=== PATIENT | female | born 1955 | race Caucasian/White ===

== ENCOUNTER 2023-08-10 12:47 | Emergency (ER) | payer OTHER ==
[~2023-08-10] VITALS: Ht 172.7 cm; Wt 93.0 kg
[2023-08-10 13:05] VITALS: BP 162/98
== END 2023-08-10 15:40 | disposition home or self-care (01) ==
LOC: ER 12:47
DX: S83.91XA Sprain of unspecified site of right knee, initial encounter (principal); W19.XXXA Unspecified fall, initial encounter; Z88.2 Allergy status to sulfonamides; Z88.5 Allergy status to narcotic agent
CPT/HCPCS: 73562-RT; 99283-25

== ENCOUNTER → 2024-01-21 | Outpatient (CLI) | payer MEDICARE, OTHER ==
[~2024-01-21] MED LIST: ACET325; ALBU90OI; ASCORBIC ACID500 MG; FISH OIL 1,0001 EA10; GABA300; LEVSOD88; MELA3; MULVITA; OMEP20ER; UBIQUINOL; VITAMIN B2100 MG; VITAMIN D310 MC4
[2024-01-21 14:26] LABS: Source, Urine Clean Catch
[2024-01-21 16:04] LABS: Appearance, Urine Hazy (Clear); Bilirubin, Urine Neg (Neg); Blood, Urine Neg (Neg); Color, Urine Yellow (P-Yellow); Glucose Qualitative, Urine Neg (Neg); Ketones, Urine Neg (Neg); Leukocyte Esterase, Urine Neg (Neg); Nitrite, Urine Pos (Neg); Protein, Urine 1+ (Neg); Urobilinogen, Urine NORM (Normal)
[2024-01-21 16:29] LABS: Bacteria Many /hpf; Red Blood Cells, Urine 0-2 /hpf (0-2); Squamous Epithelial Cells Few /hpf (Few)
== END ==
LOC: LAB 14:25 → LAB SHORT 14:25
PROVIDERS: Internal Medicine Nephrology
DX: R82.90 Unspecified abnormal findings in urine (principal)
CPT/HCPCS: 81001; 87077; 87086; 87186

== ENCOUNTER 2024-02-02 12:05 | Inpatient (IN) | payer MEDICARE, OTHER ==
[~2024-02-02] VITALS: Ht 172.7 cm; Wt 98.8 kg
[~2024-02-02 12:05] MED LIST changes: -GABA300; +GABA300 PO
[2024-02-02 12:58] LABS: Source, Urine Clean Catch
[2024-02-02 12:58] LABS: Influenza A, PCR NEGATIVE (NEGATIVE); Influenza B, PCR NEGATIVE (NEGATIVE); Resp Syncytial Virus, PCR NEGATIVE (NEGATIVE); SARS-Cov-2 (COVID-19) PCR, MMC NEGATIVE (NEGATIVE)
[2024-02-02 13:01] LABS: Appearance, Urine Hazy (Clear); Bilirubin, Urine Neg (Neg); Blood, Urine 1+ (Neg); Color, Urine Yellow (P-Yellow); Glucose Qualitative, Urine Neg (Neg); Ketones, Urine Neg (Neg); Leukocyte Esterase, Urine 2+ (Neg); Nitrite, Urine Neg (Neg); Protein, Urine 3+ (Neg); Specific Gravity, Urine 1.015 (1.003-1.022); Urobilinogen, Urine NORM (Normal)
[2024-02-02 13:03] LABS: BASOPHILS ABSOLUTE AUTO 0.02 K/mm3 (0.00-0.23); BASOPHILS PERCENT AUTO 0 % (0-2); EOSINOPHILS ABSOLUTE AUTO 0.03 K/mm3 (0.00-0.68); EOSINOPHILS PERCENT AUTO 0 % (0-6); Hematocrit 31.2 % (33.0-51.0); Hemoglobin 10.5 g/dL (11.5-16.0); IMMATURE GRAN ABSOLUTE AUTO 0.03 K/mm3 (0.00-0.10); IMMATURE GRAN PERCENT AUTO 0 % (0-1); LYMPHOCYTES ABSOLUTE AUTO 1.18 K/mm3 (0.84-5.20); LYMPHOCYTES PERCENT AUTO 14 % (21-46); MONOCYTES ABSOLUTE AUTO 0.82 K/mm3 (0.16-1.47); MONOCYTES PERCENT AUTO 10 % (4-13); Mean Corpuscular HGB 31.3 pg (26.0-34.0); Mean Corpuscular HGB Conc 33.7 g/dL (31.5-36.5); Mean Corpuscular Volume 93 fL (80-100); Mean Platelet Volume 9.6 fL (9.1-12.4); NEUTROPHILS PERCENT AUTO 75 % (41-73); Platelet Count 161 K/mm3 (150-400); RDW Coefficient Variation 13.4 % (11.7-14.2); RDW Standard Deviation 45.6 fL (35.1-46.3); Red Blood Cell Count 3.36 M/mm3 (3.80-5.20); White Blood Cell Count 8.28 K/mm3 (4.00-11.30)
[2024-02-02 13:20] LABS: Albumin/Globulin Ratio 0.5 (0.8-1.8); Bilirubin, Total 0.6 mg/dL (0.1-1.0); Bun/Creatinine Ratio 13.5 (12.0-20.0); Creatinine, Blood 1.7 mg/dL (0.40-1.00); Globulin, Blood 5.5 g/dL (2.2-4.0); Total Protein, Blood 8.5 g/dL (6.4-8.2)
[2024-02-02 13:20] LABS: Bacteria Many /hpf; Mucus Mod (0-Heavy); Red Blood Cells, Urine 0-2 /hpf (0-2); Squamous Epithelial Cells Few /hpf (Few); Transitional Epithelial Cells Rare /hpf (0-Rare); White Blood Cells, Urine TNTC /hpf (0-5)
[2024-02-02 13:21] LABS: Amorphous Mod (0-Heavy); Granular Casts 0-2 /lpf (0)
[2024-02-02] MEDS ORDERED: CefTRIAXone Sodium 1,000 MG in NS 100 ML IV ONE (14:40)
[2024-02-02] MEDS ORDERED: NS 1,000 ML IV SCH (16:25)
[2024-02-02] MEDS ORDERED: Albuterol 2.5 MG/3 ML VIAL INH PRN (17:25)
[2024-02-02] MEDS ORDERED: FLU VACC TS2024-25(6MOS UP)/PF 45 MCG/0.5 ML SYRINGE IM SCH (17:25)
[2024-02-02] MEDS ORDERED: Lactated Ringer's 1,000 ML IV SCH (17:25)
[2024-02-02] MEDS ORDERED: Ondansetron HCl 2 MG / ML 2ML Vial IV PRN (17:30)
[2024-02-02] MEDS ORDERED: Piperacillin/Tazobactam Sod 3.375 GM in NS 100 ML IV SCH (18:00)
[2024-02-02] MEDS ORDERED: Morphine Sulfate 4 MG/1 ML Injection IV PRN (18:55)
[2024-02-02] MEDS ORDERED: GABA300 PO (19:19)
[2024-02-02] MEDS ORDERED: LEVSOD75 PO (19:20)
[2024-02-02] MEDS ORDERED: ATOR20 PO (19:21)
[2024-02-02] MEDS ORDERED: Sodium Bicarb 8.4% Inj 150 MEQ in Dextrose 5% 1,000 ML IV SCH (19:25)
[2024-02-02 19:48] VITALS: BP 130/112
[2024-02-02] MEDS ORDERED: HYDROmorphone HCl/Pf 1MG SYR IV PRN (20:35)
[2024-02-02] MEDS ORDERED: Metoclopramide HCl 5MG / ML 2ML Vial IV PRN (20:35)
[2024-02-02] MEDS ORDERED: Lactobacil 2-S.Thermo-Bifido 1 1 Cap PO SCH (21:00)
[2024-02-03 02:06] VITALS: BP 107/51
[2024-02-03 04:35] LABS: Hematocrit 26.5 % (33.0-51.0); Hemoglobin 8.6 g/dL (11.5-16.0); Mean Corpuscular HGB 30.4 pg (26.0-34.0); Mean Corpuscular HGB Conc 32.5 g/dL (31.5-36.5); Mean Corpuscular Volume 94 fL (80-100); Mean Platelet Volume 9.8 fL (9.1-12.4); Platelet Count 139 K/mm3 (150-400); RDW Coefficient Variation 13.6 % (11.7-14.2); RDW Standard Deviation 46.5 fL (35.1-46.3); Red Blood Cell Count 2.83 M/mm3 (3.80-5.20); White Blood Cell Count 4.87 K/mm3 (4.00-11.30)
[2024-02-03 04:47] LABS: Bun/Creatinine Ratio 14.5 (12.0-20.0); Calcium, Blood 8.7 mg/dL (8.5-10.1); Creatinine, Blood 1.52 mg/dL (0.40-1.00); Potassium, Blood 3.8 mmol/L (3.5-5.5)
--- NOTE | 2024-02-03 05:58 | NUR ---
T/F AND SUMMARY: REPORT RECEIVED FROM OVI (DISINTEGRATOR FEEDER) AND PT T/F TO ROOM 302 AT 1945. SHE'S A/OX4, WAS ORIENTED TO ROOM AND CALL SYSTEM AND IS ABLE TO MAKED NEEDS KNOWN. PT IS PLEASANT AND COOPERATIVE W/CARE AND SBA OOB. SHE REPORTS CANE USE AT BASELINE D/T "CHRONIC FATIGUE" W/OCC.BALANCE ISSUES SECONDARY TO "HYDROCEPHALUS AND BRAIN SHUNT". R.UROSTOMY IS PATENT AND DRAINING DARK KRUPA URINE. NA BICARB GTT COMMENCED AND IV ABX RECEIVED FOR TX OF UTI W/PROBABLE PYELONEPHRITIS. SHE C/O OF LOW BACK/KIDNEY PAIN AND NAGGING NAUSEA AND STATED MORPHINE RECEIVED IN ER WAS INEFFECTIVE. SHEILA (CHAIR CAR ATTENDANT) WAS MADE AWARE W/PRN DILAUDID AND REGLAN RX'D AND PROVIDED FOR GOOD EFFECT. KPAD WAS ALSO COMMENCED FOR HEIGHTENED RELIEF AND SHE THEN SLEPT MAJORITY OF NOCTE. NO ACUTE CHANGES, VSS/AFEBRILE. WCTM AND REPORT TO DAY RN.
[2024-02-03] MEDS ORDERED: Omeprazole 20 MG CapCR PO SCH (06:00)
[2024-02-03] MEDS ORDERED: Levothyroxine Sodium 0.075 MG Tab PO SCH (06:40)
[2024-02-03 07:52] VITALS: BP 135/63
[2024-02-03] MEDS ORDERED: Heparin Sodium 5000 Units/ML 1ML MDV SC SCH (09:00)
[2024-02-03] MEDS ORDERED: Acetaminophen 500 MG Tab PO PRN (09:15)
[2024-02-03] MEDS ORDERED: Gabapentin 300 MG Cap PO SCH ×2 (09:50→21:00)
--- NOTE | 2024-02-03 09:58 | NUR ---
NOTE HELD PROBIOTIC DUE TO PT FEELING NAUSEATED. REGLAN PRN GIVEN. EMISIS BAG NEAR CALL LIGHT IN REACH. AT BEDSIDE
[2024-02-03 11:56] LABS: Hematocrit 25.3 % (33.0-51.0); Hemoglobin 8.6 g/dL (11.5-16.0)
--- NOTE | 2024-02-03 13:41 | NUR ---
Upon receiving a referral for spiritual care, I visited the patient. 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 Patient tells me about the medical struggles and her desire for prayer and she affirms that it is quite alright that this Sand Mixer is not Scientologist. I gladly supplied prayer and both the patient and Alfonzo became a bit tearful. Moved by the prayer they voice appreciation and ask if I could return again another day. I also brought the patient some Scientologist inspirational reading material. Spiritual care will remain available to patient and family.
--- NOTE | 2024-02-03 14:12 | NUR ---
NOTE NOTICED A CHANGE IN COGNITION IN PATIENT. CALLED TO NOTIFY THAT PT IS CONFUSED AND DESCRIBES VISUAL HALLUCINATIONS, "REPORTED SEEING SOMEONE COME IN WITH A PURPLE BALL OF SMOKE." PT DIDN'T SEEM TO UNDERSTAND AT THE TIME SHE WAS REPORTING HALLUCINATION. PT HADN'T RECEIVED ANY NARCOTICS. DR. CHIANG REPORTED BEING BUSY IN THE ER AND TO CONTACT DR. WOOTEN. RELAYED SAME MESSAGE TO DR. WOOTEN. DR. WOOTEN REPORTED WILL LOOK AT CHART, NO NEW ORDERS AT THIS TIME. PT CALL LIGHT IN REACH, BED ALARM ON.
[2024-02-03 14:37] VITALS: BP 136/86
[2024-02-03 15:08] VITALS: BP 140/71
[2024-02-03 19:06] VITALS: BP 149/76
--- NOTE | 2024-02-03 19:14 | NUR ---
SHIFT SUMMARY PT A&OX4 WITH SOME CONFUSION. PT ADMITTED FOR CATH ASSOSIATED UTI. PT ON ROOM AIR. EATS ADEQUATE. PT REPORTS "ACCIDENTLY PULLING OUT IV." ATTEMPTED TO PUT IN TWO IV'S, WAS NOT SUCCESSFUL, PASSED ON PUTTING IN IV TO CHARGE NURSE. PT REPORTS DECIDING TO STAY AFTER TALKING TO DR. WOOTEN. PLAN TO CONT. SODIUM BICARB AND ANTIBIOTICS. PT IS A SBA. BED ALARM ON. VSS. CATHETER IS DRAINING ADEQUATE WITH NO DEPENDENT LOOPS. BED IN LOWEST POSSIBLE POSITION, CALL LIGHT IN REACH.
[2024-02-03] MEDS ORDERED: TraMADol HCl 50 MG Tab PO PRN (20:04)
[2024-02-03] MEDS ORDERED: Melatonin 5 MG Tablet PO SCH (21:00)
[2024-02-03] MEDS ORDERED: Piperacillin/Tazobactam Sod 3.375 GM in NS 100 ML IV SCH (21:00)
[2024-02-03] MEDS ORDERED: Atorvastatin 10 MG Tab PO SCH (21:00)
[2024-02-04 03:11] VITALS: BP 128/61
--- NOTE | 2024-02-04 06:16 | NUR ---
SHIFT SUMMARY: Pt is admitted for UTI and is a full code. Is alert and able to make needs known. Stated that she had 7/10 pain near the start of shift. Spoke with resident MD who spoke with PT. resident MD ordered tramadol for for BID PRN. tramadol was effective.
[2024-02-04 06:59] LABS: BASOPHILS ABSOLUTE AUTO 0.02 K/mm3 (0.00-0.23); BASOPHILS PERCENT AUTO 1 % (0-2); EOSINOPHILS ABSOLUTE AUTO 0.07 K/mm3 (0.00-0.68); EOSINOPHILS PERCENT AUTO 2 % (0-6); Hematocrit 24.7 % (33.0-51.0); Hemoglobin 8.4 g/dL (11.5-16.0); IMMATURE GRAN PERCENT AUTO 0 % (0-1); LYMPHOCYTES ABSOLUTE AUTO 0.85 K/mm3 (0.84-5.20); LYMPHOCYTES PERCENT AUTO 24 % (21-46); MONOCYTES PERCENT AUTO 11 % (4-13); Mean Corpuscular Volume 91 fL (80-100); Mean Platelet Volume 9.6 fL (9.1-12.4); NEUTROPHILS ABSOLUTE AUTO 2.27 K/mm3 (1.96-9.15); NEUTROPHILS PERCENT AUTO 63 % (41-73); Platelet Count 147 K/mm3 (150-400); RDW Coefficient Variation 13.3 % (11.7-14.2); RDW Standard Deviation 44.3 fL (35.1-46.3); Red Blood Cell Count 2.71 M/mm3 (3.80-5.20); White Blood Cell Count 3.61 K/mm3 (4.00-11.30)
[2024-02-04 07:19] LABS: Albumin, Blood 2.2 g/dL (3.4-5.0); Albumin/Globulin Ratio 0.5 (0.8-1.8); Bilirubin, Total 0.3 mg/dL (0.1-1.0); Bun/Creatinine Ratio 10.4 (12.0-20.0); Calcium, Blood 8.7 mg/dL (8.5-10.1); Creatinine, Blood 1.35 mg/dL (0.40-1.00); Globulin, Blood 4.6 g/dL (2.2-4.0); Potassium, Blood 3.3 mmol/L (3.5-5.5); Total Protein, Blood 6.8 g/dL (6.4-8.2)
[2024-02-04 07:29] VITALS: BP 138/64
[2024-02-04] MEDS ORDERED: Potassium Chloride 20 MEQ TabCR PO ONE (08:00)
[2024-02-04] MEDS ORDERED: Ascorbic Acid 500 MG Tab PO SCH (09:00)
[2024-02-04] MEDS ORDERED: Multivitamins 1 Tab PO SCH (09:00)
[2024-02-04] MEDS ORDERED: Cholecalciferol 400 unit Tab PO SCH (09:00)
[2024-02-04] MEDS ORDERED: TRAM50 PO (10:47)
[2024-02-04] MEDS ORDERED: CEFD300 PO (10:47)
[2024-02-04] MEDS ORDERED: VISBIOME 112.51 EACH PO (10:47)
--- NOTE | 2024-02-04 13:53 | NUR ---
DISCHARGE NOTE PT A&OX4. PT ADMITTED DUE TO CATHETER ASSOCIATED UTI. PT FINISHED BAG OF SODIUM BICARB THIS AM. PT HAS CHRONIC UROSTOMY. UROSTOMY WAS INTACT AND DRAINING FREELY THIS AM. PT REPORTED PAIN, PAIN MANAGED PER EMAR. PT HAD A ANTIBIOTIC DUE, PT REQUESTED TO HAVE HER IV REMOVED AND TO GO HOME. REMOVED PT IV. DR. CHIANG AWARE PT WANTING TO GO HOME, PT WAS WILLING TO WAIT FOR DR TO SEE HER BEFORE DISCHARGED. DR. CHIANG TALKED WITH PT ABOUT DISCHARGING, AND PUT IN DISCHARGE ORDERS. VSS. PT ON ROOM AIR. PT WAS TOLERATING EATING, PT IS A SBA. PT MEDS FAXED TO PREFERED PHARMACY. PT EDUCATED ON DISCHARGE INSTRUCTIONS AND MEDS. PT REPORTS WILL FOLLOW UP WITH PCP. PT WAS AT BEDSIDE THIS AM. PT ESCORTED OUT BY WHEELCHAIR WITH BELONGINGS BY LOOM SETTER FOURDRINIER TO PERSONAL VEHICLE. PT GIVEN HARD SCRIPT FOR MED.
== END 2024-02-04 11:21 | disposition home or self-care (01) | DRG 699 ==
LOC: ER 12:05 → MEDS 12:06
PROVIDERS: Nurse Practitioner Acute Care; Physician Assistant; ADMIT Student in an Organized Health Care Education/Training Program
DX: T83.511A Infection and inflammatory reaction due to indwelling urethral catheter, initial encounter (principal); E87.20 Acidosis, unspecified; N17.9 Acute kidney failure, unspecified; Y84.6 Urinary catheterization as the cause of abnormal reaction of the patient, or of later complication, without mention of misadventure at the time of the procedure; N18.32 Chronic kidney disease, stage 3b; D63.1 Anemia in chronic kidney disease; E03.9 Hypothyroidism, unspecified; K21.9 Gastro-esophageal reflux disease without esophagitis; Z90.49 Acquired absence of other specified parts of digestive tract; Z85.51 Personal history of malignant neoplasm of bladder; Z90.710 Acquired absence of both cervix and uterus; Z88.8 Allergy status to other drugs, medicaments and biological substances; Z88.2 Allergy status to sulfonamides; Z88.5 Allergy status to narcotic agent; Z79.890 Hormone replacement therapy; Z79.899 Other long term (current) drug therapy; Z98.890 Other specified postprocedural states; Z86.19 Personal history of other infectious and parasitic diseases
CPT/HCPCS: 0241U; 36415; 71045; 74177; 80048; 80053; 81001; 82947; 83690; 85014; 85018; 85025; 85027; 87086; 94760; 96361; 96365-59; 96366; 96367; 96368; 96375; 96376; 99284-25; A9270; G0378; J0696; J1171; J2270; J2543; J2765; J7030; J7070; Q9967

== ENCOUNTER 2024-10-02 06:38 | Day surgery (SDC) | payer MEDICARE, OTHER ==
[~2024-10-02] VITALS: Ht 172.7 cm; Wt 90.7 kg
[~2024-10-02 06:38] MED LIST changes: +ATOR20 PO; +CEFD300 PO; +LEVSOD75 PO; +TRAM50 PO; +VISBIOME 112.51 EACH PO
[2024-10-02] MEDS ORDERED: COQ-10100 MG (07:19)
[2024-10-02] MEDS ORDERED: BUDESONIDE (07:20)
[2024-10-02] MEDS ORDERED: ZYRTEC10 M2 (07:20)
[2024-10-02] MEDS ORDERED: Clobetasol Prop50 ML (07:21)
[2024-10-02] MEDS ORDERED: FLUT1DIS5 (07:22)
[2024-10-02] MEDS ORDERED: ARTIFICIAL TEAR15 M2 (07:26)
[2024-10-02] MEDS ORDERED: Metoclopramide HCl 5MG / ML 2ML Vial ONE (08:14)
[2024-10-02 10:01] VITALS: BP 115/93
== END 2024-10-02 10:08 | disposition home or self-care (01) ==
LOC: ORSCSDS 06:38
PROVIDERS: Internal Medicine Gastroenterology
PROC: 0DB78ZX Excision of Stomach, Pylorus, Via Natural or Artificial Opening Endoscopic, Diagnostic (ICD-10-PCS; principal; 2024-10-02 08:15)
PROC: 0DB98ZX Excision of Duodenum, Via Natural or Artificial Opening Endoscopic, Diagnostic (ICD-10-PCS; principal; 2024-10-02 08:15)
PROC: 0DBN8ZX Excision of Sigmoid Colon, Via Natural or Artificial Opening Endoscopic, Diagnostic (ICD-10-PCS; principal; 2024-10-02 08:15)
DX: R10.12 Left upper quadrant pain (principal); D50.9 Iron deficiency anemia, unspecified; R19.4 Change in bowel habit; Z86.0101 Personal history of adenomatous and serrated colon polyps; D12.5 Benign neoplasm of sigmoid colon; K57.30 Diverticulosis of large intestine without perforation or abscess without bleeding; Z85.51 Personal history of malignant neoplasm of bladder; E03.9 Hypothyroidism, unspecified; J45.909 Unspecified asthma, uncomplicated; F32.A Depression, unspecified; F41.9 Anxiety disorder, unspecified; Z79.899 Other long term (current) drug therapy
CPT/HCPCS: 88305; 88342; J2704; J2765; J7120